=== PATIENT | male | born 1990 | race African-American/Black ===

== ENCOUNTER 2017-08-26 07:08 | Emergency (ER) | payer OTHER ==
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
[2017-08-26] MEDS ORDERED: Bacitracin Zinc 1 Packet ONE (09:49)
== END 2017-08-26 11:06 | disposition home or self-care (01) ==
LOC: ERS 07:08
DX: S00.81XA Abrasion of other part of head, initial encounter (principal); S80.812A Abrasion, left lower leg, initial encounter; V43.62XA Car passenger injured in collision with other type car in traffic accident, initial encounter
CPT/HCPCS: 71045; 72125; 93005